=== PATIENT | female | born 2000 | race Two or more races ===

== ENCOUNTER → 2022-04-03 | Outpatient (CLI) | payer OTHER, SELFPAY ==
[2022-04-06 00:07] LABS: Chlamydia By Nucleic Acid AMP Negative (Negative)
[2022-04-06 14:22] LABS: Gonococcus By Nucleic Acid AMP Negative (Negative)
== END | disposition home or self-care (01) ==
LOC: LABSPEC 11:23
PROVIDERS: Visit Provider Student in an Organized Health Care Education/Training Program
DX: Z11.3 Encounter for screening for infections with a predominantly sexual mode of transmission (principal)
CPT/HCPCS: 87491; 87591